=== PATIENT | female | born 1930 | race Caucasian/White ===

== ENCOUNTER → 2017-05-06 | Outpatient (CLI) | payer MEDICARE, MEDICAID ==
[2017-05-06 13:02] LABS: HEMATOCRIT 39.5 % (36.0-47.0); HEMOGLOBIN 13.4 g/dl (12.0-16.0); MEAN CORPUSCULAR HEMOGLOBIN 29.1 pg (27.0-33.0); MEAN CORPUSCULAR HGB CONC 33.9 g/dl (32.0-36.5); MEAN CORPUSCULAR VOLUME 85.9 fl (80.0-96.0); PLATELET COUNT, AUTOMATED 258 10^3/uL (150-450); RED CELL DISTRIBUTION WIDTH 12.3 % (11.5-14.5); WHITE BLOOD COUNT 9.7 10^3/uL (4.0-10.0)
[2017-05-06 13:10] LABS: AMORPHOUS SEDIMENT SMALL (NEGATIVE); APPEARANCE, URINE CLOUDY (CLEAR); BACTERIA, URINE AUTO NEGATIVE (NEGATIVE); BILIRUBIN, URINE AUTO NEGATIVE (NEGATIVE); BLOOD, URINE BLOOD NEGATIVE (NEGATIVE); COLOR, URINE YELLOW (YELLOW); GLUCOSE, URINE (UA) AUTO NEGATIVE (NEGATIVE); KETONE, URINE AUTO NEGATIVE (NEGATIVE); LEUKOCYTE ESTERASE, URINE AUTO 3+ (NEGATIVE); MUCUS, URINE SMALL (NEGATIVE); NITRITE, URINE AUTO NEGATIVE (NEGATIVE); PROTEIN, URINE AUTO NEGATIVE (NEGATIVE); RBC, URINE AUTO 10 /HPF (0-3); RENAL EPITHELIAL CELLS 1 /HPF; SPECIFIC GRAVITY URINE AUTO 1.017 (1.002-1.035); SQUAMOUS EPITHELIAL CELL UR AU 8 /HPF (0-6); TRANSITIONAL EPITHELIAL AUTO 1 /HPF; UROBILINOGEN, URINE AUTO 0.2 mg/dL (0.0-2.0); WBC, URINE AUTO 44 /HPF (0-3)
[2017-05-06 13:16] LABS: PROTHROMBIN TIME 12.2 SECONDS (12.4-14.5)
[2017-05-06 13:41] LABS: ALBUMIN 3.7 GM/DL (3.2-5.2); ALBUMIN/GLOBULIN RATIO 0.97 (1.00-1.93); ALKALINE PHOSPHATASE 66 U/L (45-117); ALT/SGPT 22 U/L (12-78); ANION GAP 5 MEQ/L (8-16); AST/SGOT 15 U/L (7-37); BILIRUBIN,TOTAL 0.3 MG/DL (0.2-1.0); BLOOD UREA NITROGEN 31 MG/DL (7-18); CALCIUM LEVEL 8.4 MG/DL (8.8-10.2); CARBON DIOXIDE LEVEL 29 MEQ/L (21-32); CHLORIDE LEVEL 105 MEQ/L (98-107); CREATININE FOR GFR 0.68 MG/DL (0.55-1.02); ERYTHROCYTE SEDIMENTATION RATE 16 mm/hr (0-42); GLOMERULAR FILTRATION RATE > 60.0 (>32); GLUCOSE, FASTING 77 MG/DL (83-110); POTASSIUM SERUM 3.9 MEQ/L (3.5-5.1); SODIUM LEVEL 139 MEQ/L (136-145); TOTAL PROTEIN 7.5 GM/DL (6.4-8.2)
== END ==
LOC: M ADMPAT 10:46
DX: Z01.818 Encounter for other preprocedural examination (principal); M17.11 Unilateral primary osteoarthritis, right knee; Z79.899 Other long term (current) drug therapy
CPT/HCPCS: 71046

== ENCOUNTER 2017-05-19 10:27 | Inpatient (IN) | payer MEDICARE, MEDICAID ==
[2017-05-19] MEDS ORDERED: MIDAZOLAM INJ 2 MG/2 ML VIAL (J2250) As Ordered ×2 (10:59→11:14)
[2017-05-19] MEDS ORDERED: fentaNYL 100 MCG/2 ML INJECTION (J3010) As Ordered ×2 (10:59→11:14)
[2017-05-19] MEDS: LR 1,000 ML IV ×4 (11:15→17:46)
[2017-05-19] MEDS: VANCOMYCIN HCL 1,000 MG, VIAL MATE ADAPTER 1 EACH in D5W 250 ML IV ×2 (11:18→23:16)
[2017-05-19] MEDS: MIDAZOLAM INJ 2 MG/2 ML VIAL (J2250) IV (11:32)
[2017-05-19] MEDS: fentaNYL 100 MCG/2 ML INJECTION (J3010) IV (11:32)
[2017-05-19] MEDS ORDERED: ePHEDrine INJ 50 MG/ML VIAL As Ordered (12:33)
[2017-05-19] MEDS: EPINEPHrine INJ 1 MG/ML 1ML AMP As Ordered (12:43)
[2017-05-19] MEDS: ceFAZolin 1GM INJ (J0690 PER 500MG) As Ordered (12:43)
[2017-05-19] MEDS: TRANEXAMIC ACID 100 MG/ML 10ML VIAL As Ordered (12:44)
[2017-05-19] MEDS: BUPIVACAINE LIPOSOME/PF 1.3% 20 ML VIAL (13.3MG/ML)(EXPAREL) As Ordered (13:21)
[2017-05-19] MEDS ORDERED: MORPHINE 1MG/ML IN 0.9% NACL 100ML IV BAG As Ordered (13:40)
[2017-05-19] MEDS ORDERED: ROPIvacaine 0.5% 30 ML INJECTION (J2795 PER 1MG) (13:47)
[2017-05-19] MEDS ORDERED: dexameTHASONE 10 MG/1 ML VIAL PRES.FREE (J1100) (13:47)
[2017-05-19] MEDS ORDERED: NALBUPHINE HCL 10 MG/ML AMP (J2300) IV (14:00)
[2017-05-19] MEDS ORDERED: PERCOCET 5MG/325MG TAB PO (14:00)
[2017-05-19] MEDS ORDERED: EPIDURAL/PCA KEYS XX (14:00)
[2017-05-19] MEDS ORDERED: diphenhydrAMINE INJ 50MG/ML VIAL (J1200) IV (14:00)
[2017-05-19] MEDS ORDERED: fentaNYL 100 MCG/2 ML INJECTION (J3010) IV (14:00)
[2017-05-19] MEDS ORDERED: NALOXONE INJ 0.4 MG/1 ML VIAL (J2310) IV (14:00)
[2017-05-19] MEDS ORDERED: ONDANSETRON 4MG/2ML VIAL (J2405) IV ×2 (14:00)
[2017-05-19] MEDS ORDERED: FLEET ENEMA PR (14:00)
[2017-05-19] MEDS ORDERED: ACETAMINOPHEN TAB 650MG DOSE (2X325MG) PO (14:00)
[2017-05-19] MEDS: MORPHINE 1MG/ML IN 0.9% NACL 100ML IV BAG IV (14:06)
[2017-05-19] MEDS: WARFARIN SOD 5 MG TAB PO (17:46)
[2017-05-19] MEDS: MIRALAX *UNIT DOSE* 17GM PACKET PO (17:46)
[2017-05-19] MEDS: DORZOLAMIDE 2% OPHTH SOLN 10 ML BTL OU (20:22)
[2017-05-19] MEDS: POLYVINYL ALCOHOL OPHTH SOLN 15 ML(LIQUITEARS) OU (20:22)
[2017-05-19] MEDS: SENOKOT S TAB PO (20:23)
[2017-05-19] MEDS: KETOROLAC 0.5% OPHTH SOLN OU (20:23)
[2017-05-19] MEDS: LATANOPROST 0.005% OPHTH SOLN 2.5 ML OU (20:23)
[2017-05-19] MEDS ORDERED: COMBIGAN EYE DROPS (PATIENT'S OWN MED) OU (21:00)
[2017-05-20] MEDS: LR 1,000 ML IV (03:20)
[2017-05-20] MEDS: ONDANSETRON 4MG/2ML VIAL (J2405) IV ×2 (06:21→10:43)
[2017-05-20 06:53] LABS: HEMATOCRIT 32.8 % (36.0-47.0); HEMOGLOBIN 10.9 g/dl (12.0-16.0); MEAN CORPUSCULAR HEMOGLOBIN 28.5 pg (27.0-33.0); MEAN CORPUSCULAR HGB CONC 33.2 g/dl (32.0-36.5); MEAN CORPUSCULAR VOLUME 85.6 fl (80.0-96.0); PLATELET COUNT, AUTOMATED 238 10^3/uL (150-450); RED BLOOD COUNT 3.83 10^6/uL (4.00-5.40); RED CELL DISTRIBUTION WIDTH 12.2 % (11.5-14.5); WHITE BLOOD COUNT 11.2 10^3/uL (4.0-10.0)
[2017-05-20 07:07] LABS: INR 1.05; PROTHROMBIN TIME 13.8 SECONDS (12.4-14.5)
[2017-05-20 07:09] LABS: ANION GAP 9 MEQ/L (8-16); BLOOD UREA NITROGEN 23 MG/DL (7-18); CALCIUM LEVEL 8.2 MG/DL (8.8-10.2); CARBON DIOXIDE LEVEL 25 MEQ/L (21-32); CHLORIDE LEVEL 105 MEQ/L (98-107); CREATININE FOR GFR 0.66 MG/DL (0.55-1.02); GLOMERULAR FILTRATION RATE > 60.0 (>32); GLUCOSE, FASTING 106 MG/DL (83-110); MAGNESIUM LEVEL 1.9 MG/DL (1.8-2.4); POTASSIUM SERUM 3.9 MEQ/L (3.5-5.1); SODIUM LEVEL 139 MEQ/L (136-145)
[2017-05-20] MEDS: MOM 30ML SUSPENSION UDC PO (08:56)
[2017-05-20] MEDS: OCUVITE 1 TAB PO (08:56)
[2017-05-20] MEDS: MIRALAX *UNIT DOSE* 17GM PACKET PO (08:56)
[2017-05-20] MEDS: SENOKOT S TAB PO ×2 (08:57→21:02)
[2017-05-20] MEDS: DORZOLAMIDE 2% OPHTH SOLN 10 ML BTL OU ×2 (08:57→21:02)
[2017-05-20] MEDS: LISINOPRIL 20 MG TAB PO (08:57)
[2017-05-20] MEDS: hydroCHLOROthiazide 25 MG TAB PO (08:57)
[2017-05-20] MEDS: KETOROLAC 0.5% OPHTH SOLN OU ×2 (08:58→21:03)
[2017-05-20] MEDS: ONDANSETRON 4 MG TAB (S0181) PO (08:58)
[2017-05-20] MEDS ORDERED: MIRALAX *UNIT DOSE* 17GM PACKET PO (09:00)
[2017-05-20] MEDS: PANTOPRAZOLE 40MG INJ (PROTONIX) (C9113) IV (10:43)
[2017-05-20] MEDS: PERCOCET 5MG/325MG TAB PO ×3 (10:43→21:02)
[2017-05-20] MEDS: WARFARIN SOD 5 MG TAB PO (16:54)
[2017-05-20] MEDS: LATANOPROST 0.005% OPHTH SOLN 2.5 ML OU (21:03)
[2017-05-20] MEDS: POLYVINYL ALCOHOL OPHTH SOLN 15 ML(LIQUITEARS) OU (21:03)
[2017-05-21] MEDS: PERCOCET 5MG/325MG TAB PO (06:05)
[2017-05-21 07:14] LABS: HEMATOCRIT 28.5 % (36.0-47.0); HEMOGLOBIN 9.6 g/dl (12.0-16.0); MEAN CORPUSCULAR HEMOGLOBIN 29.2 pg (27.0-33.0); MEAN CORPUSCULAR HGB CONC 33.7 g/dl (32.0-36.5); MEAN CORPUSCULAR VOLUME 86.6 fl (80.0-96.0); PLATELET COUNT, AUTOMATED 195 10^3/uL (150-450); RED BLOOD COUNT 3.29 10^6/uL (4.00-5.40); RED CELL DISTRIBUTION WIDTH 12.6 % (11.5-14.5); WHITE BLOOD COUNT 8.5 10^3/uL (4.0-10.0)
[2017-05-21 07:24] LABS: INR 1.46; PROTHROMBIN TIME 18.1 SECONDS (12.4-14.5)
[2017-05-21 07:32] LABS: ANION GAP 7 MEQ/L (8-16); BLOOD UREA NITROGEN 25 MG/DL (7-18); CALCIUM LEVEL 7.8 MG/DL (8.8-10.2); CARBON DIOXIDE LEVEL 27 MEQ/L (21-32); CHLORIDE LEVEL 103 MEQ/L (98-107); CREATININE FOR GFR 0.67 MG/DL (0.55-1.02); GLOMERULAR FILTRATION RATE > 60.0 (>32); GLUCOSE, FASTING 98 MG/DL (83-110); MAGNESIUM LEVEL 2.2 MG/DL (1.8-2.4); POTASSIUM SERUM 3.8 MEQ/L (3.5-5.1); SODIUM LEVEL 137 MEQ/L (136-145)
[2017-05-21] MEDS: MOM 30ML SUSPENSION UDC PO (08:40)
[2017-05-21] MEDS: SENOKOT S TAB PO (08:40)
[2017-05-21] MEDS: DORZOLAMIDE 2% OPHTH SOLN 10 ML BTL OU (08:40)
[2017-05-21] MEDS: LISINOPRIL 20 MG TAB PO (08:40)
[2017-05-21] MEDS: KETOROLAC 0.5% OPHTH SOLN OU (08:40)
[2017-05-21] MEDS: OCUVITE 1 TAB PO (08:41)
[2017-05-21] MEDS: hydroCHLOROthiazide 25 MG TAB PO (08:41)
[2017-05-21] MEDS: MIRALAX *UNIT DOSE* 17GM PACKET PO (08:41)
[2017-05-21] MEDS ORDERED: WARFARIN SOD 5 MG TAB PO (17:00)
== END 2017-05-21 11:12 | DRG 470 ==
LOC: M OR 10:27 → M MS5PR 15:15
PROC: 0SRC0J9 Replacement of Right Knee Joint with Synthetic Substitute, Cemented, Open Approach (ICD-10-PCS; principal; 2017-05-19 11:45)
DX: M17.11 Unilateral primary osteoarthritis, right knee (principal); I10 Essential (primary) hypertension; H40.9 Unspecified glaucoma; Z88.1 Allergy status to other antibiotic agents; Z88.8 Allergy status to other drugs, medicaments and biological substances; Z79.82 Long term (current) use of aspirin; Z79.899 Other long term (current) drug therapy; Z90.710 Acquired absence of both cervix and uterus; Z98.49 Cataract extraction status, unspecified eye; Z96.652 Presence of left artificial knee joint; Z22.322 Carrier or suspected carrier of Methicillin resistant Staphylococcus aureus